=== PATIENT | female | born 1925 | race Caucasian/White ===

== ENCOUNTER 2016-03-20 11:45 | Outpatient (CLI) | payer MEDICARE, OTHER | END 2016-03-20 11:46 | disposition home or self-care (01) | DX: Z12.31 Encounter for screening mammogram for malignant neoplasm of breast (principal); Z80.3 Family history of malignant neoplasm of breast ==

== ENCOUNTER 2016-04-01 09:27 | Outpatient (CLI) | payer MEDICARE, OTHER | END 2016-04-01 09:28 | disposition home or self-care (01) | DX: E03.9 Hypothyroidism, unspecified (principal) ==

== ENCOUNTER 2016-06-03 08:00 | Outpatient (CLI) | payer MEDICARE, OTHER | END 2016-06-03 23:59 | DX: E03.9 Hypothyroidism, unspecified (principal) ==

== ENCOUNTER 2016-07-15 10:00 | Outpatient (CLI) | payer MEDICARE, OTHER | END 2016-07-15 10:01 | DX: N39.0 Urinary tract infection, site not specified (principal) ==

== ENCOUNTER 2016-08-07 15:26 | Outpatient (CLI) | payer MEDICARE, OTHER | END 2016-08-07 15:27 | disposition home or self-care (01) | DX: N28.89 Other specified disorders of kidney and ureter (principal) ==

== ENCOUNTER 2016-08-12 09:57 | Outpatient (CLI) | payer MEDICARE, OTHER | END 2016-08-12 09:58 | LOC: LAB.S 09:57 | PROVIDERS: ATTEND Nurse Practitioner Family | DX: E03.9 Hypothyroidism, unspecified (principal) | CPT/HCPCS: 36415; 84443 ==

== ENCOUNTER 2016-08-16 14:30 | Outpatient (CLI) | payer MEDICARE, OTHER ==
[2016-08-16 18:47] LABS: BILIRUBIN,URINE NEGATIVE (NEGATIVE); PH,URINE 6.5 PH (5.0-7.5)
[2016-08-16 18:55] LABS: UR CULTURE IF IND INDICATED; WBC,URINE >25 /HPF (0-5)
== END 2016-08-16 14:31 | disposition home or self-care (01) ==
LOC: LAB.R 14:30
PROVIDERS: ATTEND Nurse Practitioner Family
DX: R30.0 Dysuria (principal)
CPT/HCPCS: 81001; 87086

== ENCOUNTER 2016-09-04 09:15 | Outpatient (CLI) | payer MEDICARE, OTHER ==
[2016-09-04 18:04] LABS: BILIRUBIN,URINE NEGATIVE (NEGATIVE); PH,URINE 6.5 PH (5.0-7.5)
[2016-09-04 18:13] LABS: WBC,URINE >25 /HPF (0-5)
[2016-09-04 18:14] LABS: UR CULTURE IF IND INDICATED
[2016-09-04 19:17] LABS: THYROID STIMULATING HORMONE 2.06 uIU/mL (0.34-5.60)
== END 2016-09-04 09:16 | disposition home or self-care (01) ==
LOC: LAB.F 09:15
PROVIDERS: ATTEND Nurse Practitioner Family
DX: R30.0 Dysuria (principal)
CPT/HCPCS: 36415; 81001; 83883; 84439; 84443; 87086

== ENCOUNTER 2016-09-20 15:10 | Outpatient (CLI) | payer MEDICARE, OTHER ==
[2016-09-20 18:51] LABS: BILIRUBIN,URINE NEGATIVE (NEGATIVE); PH,URINE 6.5 PH (5.0-7.5)
[2016-09-20 19:13] LABS: UR CULTURE IF IND INDICATED; WBC,URINE >25 /HPF (0-5)
== END 2016-09-20 15:11 | disposition home or self-care (01) ==
LOC: LAB.R 15:10
PROVIDERS: ATTEND Nurse Practitioner Family
DX: R30.0 Dysuria (principal)
CPT/HCPCS: 81001; 87086

== ENCOUNTER 2016-10-02 18:12 | Outpatient (CLI) | payer MEDICARE, OTHER | END 2016-10-02 18:13 | disposition home or self-care (01) | LOC: EMS 18:12 | PROVIDERS: ATTEND Surgery | DX: K92.1 Melena (principal) | CPT/HCPCS: A0425; A0429 ==

== ENCOUNTER 2017-01-21 08:00 | Outpatient (CLI) | payer MEDICARE, OTHER ==
[2017-01-23 16:13] LABS: BILIRUBIN,URINE NEGATIVE (NEGATIVE); UA w/ MICROSCOPIC CHARGE YES
[2017-01-23 16:40] LABS: UR CULTURE IF IND INDICATED
[2017-01-23 16:50] LABS: WBC,URINE >25 /HPF (0-5)
== END 2017-01-21 08:01 | disposition home or self-care (01) ==
LOC: LAB.R 08:00
PROVIDERS: ATTEND Urology
DX: N30.90 Cystitis, unspecified without hematuria (principal)
CPT/HCPCS: 81001; 81003; 87077; 87086